=== PATIENT | male | born 1960 | race Caucasian/White ===

== ENCOUNTER → 2016-11-30 | Outpatient (CLI) | payer BC ==
[~2016-11-30] MED LIST: ADVIL200 MG PO; COMPAZINE10 MG PO; HYDROCODON-ACE1 EAC4 PO; ZESTRIL2.5 MG PO
[2016-11-30 13:18] LABS: BASOPHIL # 0.1 K/uL (0.0-0.2); BASOPHIL % 0.8 %; EOSINOPHIL # 0.2 K/uL (0.0-0.5); EOSINOPHIL % 2.8 %; HEMATOCRIT 40.2 % (37.0-53.0); HEMOGLOBIN 13.7 g/dL (12.0-17.0); IMMATURE GRANULOCYTE % 0.2 %; LYMPHOCYTE # 1.4 K/uL (0.8-4.0); LYMPHOCYTE % 21.9 %; MCH 31.4 pg (27.0-34.0); MCHC 34.1 gm/dL (32.0-36.5); MONOCYTE # 0.7 K/uL (0.0-1.0); MONOCYTE % 10.6 %; MPV 10.9 fl (9.4-12.4); NEUTROPHIL # (ANC) 4.1 K/uL (1.4-9.0); NEUTROPHIL % 63.7 %; NRBC % 0 /100WBC (0-0.00); PLATELET COUNT 178 K/uL (150-450); RBC 4.37 M/uL (4.00-6.00); WBC 6.5 K/uL (4.0-11.0)
== END | disposition disaster alternative care site (69) ==
LOC: GOPD 11-25
PROVIDERS: Otolaryngology
PROC: 0HB4XZX Excision of Neck Skin, External Approach, Diagnostic (ICD-10-PCS; principal; 2016-11-30)
DX: C76.0 Malignant neoplasm of head, face and neck (principal)
CPT/HCPCS: J2001; J2250; J3010

== ENCOUNTER → 2016-12-21 | Day surgery (SDC) | payer BC ==
[~2016-12-21] VITALS: Ht 188 cm; Wt 82.5 kg
== END | disposition disaster alternative care site (69) ==
LOC: GPOC 12-19 15:00 → GEND 09:00 → GPOC 15:00
PROC: 0DBP8ZX Excision of Rectum, Via Natural or Artificial Opening Endoscopic, Diagnostic (ICD-10-PCS; principal; 2016-12-21)
PROC: 0DBN8ZX Excision of Sigmoid Colon, Via Natural or Artificial Opening Endoscopic, Diagnostic (ICD-10-PCS; 2016-12-21)
PROC: 3E0H8GC Introduction of Other Therapeutic Substance into Lower GI, Via Natural or Artificial Opening Endoscopic (ICD-10-PCS; 2016-12-21)
DX: C18.7 Malignant neoplasm of sigmoid colon (principal); K57.30 Diverticulosis of large intestine without perforation or abscess without bleeding; K62.89 Other specified diseases of anus and rectum; E78.5 Hyperlipidemia, unspecified; R03.0 Elevated blood-pressure reading, without diagnosis of hypertension; F17.220 Nicotine dependence, chewing tobacco, uncomplicated; Z88.0 Allergy status to penicillin; Z98.890 Other specified postprocedural states
CPT/HCPCS: J1610; J2001; J7030